=== PATIENT | female | born 1985 | race Caucasian/White ===

== ENCOUNTER 2021-04-08 02:14 | Emergency (ER) | payer BC ==
[~2021-04-08] VITALS: Ht 170.2 cm; Wt 74.9 kg
[2021-04-08] MEDS ORDERED: LIDO:MAALOX 1:1 20 ML SINGLE DOSE. PO ONE (02:30)
--- NOTE | 2021-04-08 02:43 | PHYS DOC ---
Adult General HPI HPI Patient is a 35-year-old female with a past medical history significant for heartburn who presents to the emergency department with a chief complaint of heartburn. States she has had a long history of heartburn since she her . States that she has intermittently taken [id number] PPIs and Tums and recently started taking them again because she started getting symptoms again. States that she did take an omeprazole yesterday and a few Tums but tonight could really feel the heartburn up into her throat. States she had not had that in a while. Denies any recent travel, traumas, fevers, shortness of breath, abdominal pain, nausea, vomiting. States that her diet is normal and she does not really adjusted for heartburn. Review of Systems Review of Systems Constitutional: Denies fever or chills [] Eyes: Denies change in visual acuity, redness, or eye pain [] HENT: Denies nasal congestion or sore throat [] Respiratory: Denies cough or shortness of breath [] Cardiovascular: No additional information not addressed in HPI [] GI: Denies abdominal pain, nausea, vomiting, bloody stools or diarrhea [] : Denies dysuria or hematuria [] Musculoskeletal: Denies back pain or joint pain [] Integument: Denies rash or skin lesions [] Neurologic: Denies headache, focal weakness or sensory changes [] Endocrine: Denies polyuria or polydipsia [] All other systems were reviewed and found to be within normal limits, except as documented in this note. Current Medications Current Medications Current Medications Medications (Trade) Dose Ordered Sig/Aurelio Start Time Stop Time Status Last Admin Dose Admin Multi-Ingredient Mouthwash/Gargle (Gi Cocktail) 20 ml 1X ONCE 04/08/21 02:30 04/08/21 02:31 UNV Physical Exam Physical Exam Constitutional: Well developed, well nourished, no acute distress, non-toxic appearance. [] Cardiovascular:Heart rate regular rhythm, no murmur [] Lungs & Thorax: No respiratory distress Abdomen: soft, no tenderness, no masses, no pulsatile masses. [] Skin: Warm, dry, no erythema, no rash. [] Back: no CVA tenderness. [] Extremities: No tenderness, no cyanosis, no clubbing, ROM intact, no edema. [] Neurologic: Alert and oriented X 3, normal motor function, normal sensory function, no focal deficits noted. [] Psychologic: Affect normal, judgement normal, mood normal. [] EKG EKG [] Radiology/Procedures Radiology/Procedures [] Heart Score C/O Chest Pain: N/A Risk Factors: Risk Factors: DM, Current or recent (<one month) smoker, HTN, HLP, family history of CAD, obesity. Risk Scores: Risk Factors: DM, Current or recent (<one month) smoker, HTN, HLP, family history of CAD, obesity. Course & Med Decision Making Course & Med Decision Making Patient is a 35-year-old female presents with a chief complaint of heartburn and chest pain Vital signs not concerning. Physical exam noted above. EKG noted above and not concerning. Given GI cocktail. Patient with relief from GI cocktail. Discussed all findings with patient and advised a PPI and Tums over the next several days until she can see her primary care physician. Also suggested and given education on appropriate diet for heartburn. Advised to call primary care physician first thing Friday to set up a follow-up visit just in case she needs an EGD. Gave return precautions to the ED. Patient grateful, verbalized understanding and agreed with plan of discharge. Dragon Disclaimer Dragon Disclaimer This electronic medical record was generated, in whole or in part, using a voice recognition dictation system. Departure Departure: Impression: Primary Impression: Heartburn Disposition: 01 HOME / SELF CARE / HOMELESS Condition: GOOD Referrals: CLAUDIA BANDA DO (PCP) Patient Instructions: Diet for Gastroesophageal Reflux Disease, Adult, Heartburn Additional Instructions: Please read all of the attached information very carefully on heartburn/GERD and appropriate diet to help with symptom management. As discussed, continue your ikag-wrj-zsipwpr omeprazole and Tums as indicated on the bottle. Please adjust your diet accordingly has discussed and in your education. Please call your primary care physician first thing Friday morning to discuss your ED visit and set up a follow-up. Please come back to the emergency department immediately with new or concerning symptoms as discussed. DONAVAN ALBERTO MD April 08, 2021 02:43
[2021-04-08 03:00] VITALS: BP 128/81
--- NOTE | 2021-04-08 03:23 | RAD ---
XR CHEST 1V Clinical History: Reason: chest pain / Spl. Instructions: / History: Technique: AP view of the chest was obtained at 04/08/2021 3:04 AM. Comparison: None. Findings: The cardiomediastinal silhouette is normal. The pulmonary vasculature is normal. The lungs and pleura l margins are clear. Impression: No evidence of an acute cardiopulmonary process. Electronically signed by: Garcia Ibarra III, MD (04/08/2021 3:21 AM) [facility]
--- NOTE | 2021-04-08 04:28 | EKG ---
[address] [address] Test Date: 2021-04-08 Test Time: 02:31:17 Pat Name: BONITA DOTY Department: Room: Gender: F Transit Manager: : [id number] Requested By: DONAVAN ALBERTO Order Number: [id number] Reading MD: Measurements Intervals Ermine Rate: 70 P: 24 WV: 130 QRS: 8 QRSD: 74 T: 33 QT: 390 QTc: 424 Interpretive Statements SINUS RHYTHM NORMAL ECG RI6.02 No previous ECG available for comparison
[2021-04-08] MEDS ORDERED: SERT50TA PO (06:02)
[2021-04-08] MEDS ORDERED: OMEP20TA63 PO (06:02)
[2021-04-08] MEDS ORDERED: SUCR1TAB35 PO (13:00)
== END 2021-04-08 03:21 | disposition home or self-care (01) ==
LOC: ER 02:14
DX: R12 Heartburn (principal); K21.9 Gastro-esophageal reflux disease without esophagitis
CPT/HCPCS: 71045; 93005; 99284

== ENCOUNTER 2021-04-08 12:37 | Emergency (ER) | payer BC ==
[~2021-04-08] VITALS: Ht 170.2 cm; Wt 74.9 kg
[~2021-04-08 12:37] MED LIST: OMEP20TA63 PO; SERT50TA PO
[2021-04-08] MEDS ORDERED: LIDO:MAALOX 1:1 20 ML SINGLE DOSE. PO ONE (13:00)
[2021-04-08] MEDS ORDERED: SUCR1TAB35 PO (13:00)
--- NOTE | 2021-04-08 13:01 | PHYS DOC ---
Past History Past Medical History: Depression, GERD Past Surgical History: No Surgical History Alcohol Use: None Adult General Chief Complaint Chief Complaint: HEARTBURN/GI DISTRESS [facility] HPI Patient is a healthy 36-year-old female presenting for GERD. She was seen here less than 12 hours prior, was evaluated with normal vitals and physical exam and nonconcerning EKG, patient was offered times 2 GI cocktails but only accepted 1. States her symptoms completely improved with this and she was discharged home. Woke up today and took daily PPI but admits her symptoms came back. Reports only thing she has eaten/drank is green tea. She presents requesting additional GI cocktail. No fever, chest pain, ripping or tearing sensation in chest, shortness of breath or other concerning symptom Review of Systems Review of Systems Fourteen body systems of review of systems have been reviewed. See HPI for pertinent positives and negative responses, other lira all other systems are negative, non-pertinent or non-contributory Allergies Allergies Allergies Coded Allergies Type Severity Reaction Last Updated Verified No Known Drug Allergies 04/08/21 No Physical Exam Physical Exam Constitutional: Well developed, well nourished, no acute distress, non-toxic appearance. HENT: Normocephalic, atraumatic, bilateral external ears normal, oropharynx moist, no oral exudates, nose normal. Eyes: PERRLA, EOMI, conjunctiva normal, no discharge. Neck: Normal range of motion, no tenderness, supple, no stridor. Cardiovascular: Heart rate regular, sinus rhythm, no murmurs rubs or gallops Lungs & Thorax: Bilateral breath sounds clear to auscultation Abdomen: Bowel sounds normal, soft, no tenderness, no masses, no pulsatile masses. Nonsurgical abdomen, no peritoneal signs Skin: Warm, dry, no erythema, no rash. Back: No tenderness, no CVA tenderness. Extremities: No tenderness, no cyanosis, no clubbing, ROM intact, no edema. Neurologic: Alert and oriented X 3, grossly normal motor & sensory function, no focal deficits noted. Psychologic: Affect normal, judgement normal, mood normal. Current Patient Data Vital Signs Vital Signs Date Time Temp Pulse Resp B/P (MAP) Pulse Ox O2 Delivery O2 Flow Rate FiO2 04/08/21 12:44 97.6 69 16 114/67 (83) 98 Room Air EKG EKG [] Radiology/Procedures Radiology/Procedures [] Heart Score C/O Chest Pain: No HEART Score for Chest Pain: HEART Score for Chest Pain Response (Comments) Value History Slighlty/Non-Suspicious 0 ECG Normal 0 Age < 45 0 Risk Factors No Risk Factors 0 Total 0 Risk Factors: Risk Factors: DM, Current or recent (<one month) smoker, HTN, HLP, family history of CAD, obesity. Risk Scores: Risk Factors: DM, Current or recent (<one month) smoker, HTN, HLP, family history of CAD, obesity. Course & Med Decision Making Course & Med Decision Making Discussed with the patient all findings and diagnostic testing. I discussed most likely diagnosis of GERD. Times 1 GI cocktail administered with total improvement in symptoms. I discussed alternative diagnoses and need for other diagnostic work-up such as repeat EKG, consideration for labs etc. but patient deferred. As such, I stressed need for close outpatient follow-up to review today's ER visit. Strict return precautions were also discussed at length with good understanding by patient. Patient voiced understanding and agreement with the plan. I educated patient on dietary lifestyle modifications as green tea consumption this morning likely exacerbated patient's GERD. Patient knows to come back for repeat evaluation if concerning signs or symptoms present prior to outpatient follow-up. Hemodynamically stable, ambulatory and well-appearing at time of disposition. Dragon Disclaimer Dragon Disclaimer This electronic medical record was generated, in whole or in part, using a voice recognition dictation system. Departure Departure: Impression: Primary Impression: GERD (gastroesophageal reflux disease) Disposition: HOME / SELF CARE / HOMELESS Condition: STABLE Referrals: CLAUDIA BANDA DO (PCP) Patient Instructions: Diet for Gastroesophageal Reflux Disease, Adult, Gastroesophageal Reflux Disease, Adult Additional Instructions: You were seen for acid reflux. You are on appropriate home medication to reduce your stomach acid levels. We are also starting you on a medication called Car afate which as discussed, should improve your symptoms as well. You should avoid alcohol, spicy foods, or NSAIDs as these can exacerbate your symptoms. As mention, you need to contact your primary care provider in the morning to review ER visits and need for close outpatient follow-up to ensure improved symptomatic improvement. As disclose, if your symptoms persist there might be a role in outpatient GI consultation. Return to the ED if you develop worsening pain, fever, black or bloody stools, or any other new or concerning symptoms. The medicine we started you on can take a few days to work fully. Scripts Sucralfate (CARAFATE) 1 Gm Tablet 1 TAB PO QID for gerd for 30 Days, #120 TAB 0 Refills Prov: CHUY DAVEY DO 04/08/21 CHUY DAVEY DO April 08, 2021 13:01
[2021-04-08 13:16] VITALS: BP 132/70
== END 2021-04-08 13:15 | disposition home or self-care (01) ==
LOC: ER 12:37
DX: K21.9 Gastro-esophageal reflux disease without esophagitis (principal); F32.9 Major depressive disorder, single episode, unspecified
CPT/HCPCS: 99283